=== PATIENT | male | born 1945 | race Caucasian/White ===

== ENCOUNTER → 2016-04-22 | Outpatient (CLI) | payer MEDICARE, OTHER | LOC: CT 08:00 | DX: R20.2 Paresthesia of skin (principal); R48.1 Agnosia; R93.0 Abnormal findings on diagnostic imaging of skull and head, not elsewhere classified | CPT/HCPCS: 70470; Q9965 ==

== ENCOUNTER → 2016-04-27 | Outpatient (CLI) | payer MEDICARE, OTHER | LOC: MRI 10:45 | DX: I72.0 Aneurysm of carotid artery (principal); R20.2 Paresthesia of skin; R48.1 Agnosia | CPT/HCPCS: 70544 ==

== ENCOUNTER → 2016-07-15 | Outpatient (CLI) | payer MEDICARE, OTHER | LOC: US 14:48 | DX: N63 Unspecified lump in breast (principal); E11.9 Type 2 diabetes mellitus without complications; R93.8 Abnormal findings on diagnostic imaging of other specified body structures | CPT/HCPCS: 76641-LT ==

== ENCOUNTER → 2020-11-20 | Outpatient (CLI) | payer MEDICARE, OTHER ==
[~2020-11-20] MED LIST: AMLODIPINE BES2.5 MG PO; CLOPIDOGREL75 MG PO; GLUCOTROL 10 MG10 MG PO; HUMALOG100 UNIT/2 SQ; HYDROCODON-ACE1 EAC2 PO; ISOSORBIDE MONO60 MG PO; LANTUS100 UNIT/1 SQ; METFORMIN HCL1000 MG PO; METOPROLOL TAR100 MG PO; MONTELUKAST SOD10 MG PO; PRAVASTATIN SOD40 MG PO; RANITIDINE HCL300 MG PO; SPIRIVA RESPIMAT4 GM INH; ZETIA 10 MG TAB10 MG PO; ZITHROMAX250 MG PO; ZOVIRAX 800 MG800 MG PO
== END ==
LOC: KOH-I 13:55
DX: R91.1 Solitary pulmonary nodule (principal)
CPT/HCPCS: 71250

== ENCOUNTER → 2021-02-01 | Outpatient (CLI) | payer MEDICARE, OTHER ==
[~2021-02-01] VITALS: Ht 167.6 cm; Wt 102.1 kg
== END ==
LOC: EROP 11:56
DX: U07.1 COVID-19 (principal); Z23 Encounter for immunization
CPT/HCPCS: 96365

== ENCOUNTER 2021-02-22 06:18 | Emergency (ER) | payer MEDICARE, OTHER ==
[~2021-02-22 06:18] MED LIST changes: +DEXAMETHASONE6 MG PO
[2021-02-22 07:09] LABS: HEMOGLOBIN 15.1 gm/dl (14.0-17.5); RED BLOOD COUNT 5.47 M/UL (4.20-5.50); WHITE BLOOD COUNT 17.7 K/UL (4.5-11.0)
== END 2021-02-22 10:41 | disposition home or self-care (01) ==
LOC: ER1 06:18
PROVIDERS: Physician Assistant
DX: R41.82 Altered mental status, unspecified (principal); E11.9 Type 2 diabetes mellitus without complications; I10 Essential (primary) hypertension; E78.5 Hyperlipidemia, unspecified; Z95.5 Presence of coronary angioplasty implant and graft; Z87.891 Personal history of nicotine dependence
CPT/HCPCS: 70450; 71045; 80053; 81001; 82550; 82553; 82962; 83874; 84484; 85025; 93005; 99285

== ENCOUNTER → 2021-03-24 | Outpatient (CLI) | payer MEDICARE, OTHER | LOC: KOH-I 09:32 | DX: R05.9 Cough, unspecified (principal); J98.4 Other disorders of lung; J94.8 Other specified pleural conditions | CPT/HCPCS: 71046 ==

== ENCOUNTER → 2021-04-14 | Outpatient (CLI) | payer MEDICARE, OTHER ==
[2021-04-14 16:58] LABS: HEMOGLOBIN 11.5 gm/dl (14.0-17.5); RED BLOOD COUNT 4.24 M/UL (4.20-5.50); WHITE BLOOD COUNT 6.5 K/UL (4.5-11.0)
== END ==
LOC: LAB 15:45
PROVIDERS: Physician Assistant
DX: R50.9 Fever, unspecified (principal); R91.8 Other nonspecific abnormal finding of lung field
CPT/HCPCS: 36415; 71046; 80048; 85025